=== PATIENT | female | born 1990 | race Caucasian/White ===

== ENCOUNTER 2020-08-28 17:20 | Emergency (ER) | payer BC ==
[~2020-08-28] VITALS: Ht 162.6 cm; Wt 79.5 kg
[2020-08-28] MEDS ORDERED: IV NORMAL SALINE 1000ML BAG 1,000 ML IV SCH (17:30)
[2020-08-28 18:25] LABS: BASO % 0 % (0-3); EOS # 0.1 x10^3/uL (0.0-0.7); EOS % 1 % (0-3); HEMOGLOBIN 10.3 g/dL (12.0-15.5); LYMPH % 11 % (24-48); MEAN CORPUSCULAR HEMOGLOBIN 28 pg (25-35); MEAN CORPUSCULAR HGB CONC 33 g/dL (31-37); MEAN CORPUSCULAR VOLUME 85 fL (79-100); MONO # 0.9 x10^3/uL (0.0-1.1); MONO % 11 % (0-9); NEUT # 6.6 x10^3/uL (1.8-7.7); NEUT % 77 % (31-73); PLATELET COUNT 218 x10^3/uL (140-400); RED BLOOD COUNT 3.65 x10^6/uL (3.50-5.40); RED CELL DISTRIBUTION WIDTH 12.7 % (11.5-14.5); WHITE BLOOD COUNT 8.6 x10^3/uL (4.0-11.0)
[2020-08-28 18:28] LABS: BILIRUBIN,URINE NEGATIVE (NEG); CLARITY,URINE CLEAR; COLOR,URINE YELLOW; NITRITE,URINE NEGATIVE (NEG); PH,URINE 5.5 (<5.0-8.0); PROTEIN,URINE NEGATIVE (NEG-TRACE); UROBILINOGEN,URINE 0.2 mg/dL (0.2 mg/dL)
[2020-08-28 18:35] LABS: BARBITURATES NEG (NEG); BENZODIAZEPINES NEG (NEG); CANNABINOIDS NEG (NEG); COCAINE NEG (NEG); METHADONE NEG (NEG); OPIATES NEG (NEG); PHENCYCLIDINE NEG (NEG)
[2020-08-28 18:39] LABS: AMPHETAMINE/METHAMPHETAMINE NEG (NEG)
[2020-08-28 18:41] LABS: CALCIUM 8.1 mg/dL (8.5-10.1); CREATININE 0.6 mg/dL (0.6-1.0); GFR 119.9; POTASSIUM 3.5 mmol/L (3.5-5.1)
[2020-08-28 18:43] LABS: BACTERIA,URINE MANY /HPF (0-FEW); RBC,URINE 0 /HPF (0-2)
[2020-08-28 18:47] LABS: ALBUMIN 2.4 g/dL (3.4-5.0); ALBUMIN/GLOBULIN RATIO 0.8 (1.0-1.7); TOTAL BILIRUBIN 0.2 mg/dL (0.2-1.0); TOTAL PROTEIN 5.5 g/dL (6.4-8.2)
--- NOTE | 2020-08-28 19:14 | PHYS DOC ---
Past Medical History Past Medical History: Anxiety Past Surgical History: Smoking Status: Current Every Day Smoker Alcohol Use: Occasionally Additional Information: 'I TAKE SIPS OF ALCOHOL OCCASIONALLY' General Adult EDM: Chief Complaint: SYNCOPE HPI: HPI: Patient is a 29 year old female who presents with states today she was standing in the house when she suddenly got short of air and dizzy and felt she is going to pass out and nauseated. She went to the bathroom and leaned over the sink in the next and she knows she is being woken up on the floor. She states that she knows she has not drink as much water she usually does. Patient is 30 weeks . She sees a Dr. Moreno. She states only thing that she ate today was pop tarts. Patient currently denies pain, nausea, vomiting, diarrhea, abdominal pain, back pain, neck pain, head pain, dizziness, vision changes, fo tita weakness, numbness or tingling, joint pain, vaginal bleeding, vaginal discharge. Review of Systems: Review of Systems: Constitutional: Denies fever or chills. [] Eyes: Denies change in visual acuity. [] HENT: Denies nasal congestion or sore throat. [] Respiratory: Denies cough. + shortness of breath. [] Cardiovascular: Denies chest pain or edema. [] GI: Denies abdominal pain, nausea, vomiting, bloody stools or diarrhea. [] : Denies dysuria. [] Musculoskeletal: Denies back pain or joint pain. [] Integument: Denies rash. [] Neurologic: + Dizziness, + syncope, denies headache, focal weakness or sensory changes. [] Endocrine: Denies polyuria or polydipsia. [] Lymphatic: Denies swollen glands. [] Psychiatric: Denies depression or anxiety. [] Heart Score: Risk Factors: Risk Factors: DM, Current or recent (<one month) smoker, HTN, HLP, family history of CAD, obesity. Risk Scores: Score 0 - 3: 2.5% MACE over next 6 weeks - Discharge Home Score 4 - 6: 20.3% MACE over next 6 weeks - Admit for Clinical Observation Score 7 - 10: 72.7% MACE over next 6 weeks - Early Invasive Strategies Current Medications: Current Medications Medications (Trade) Dose Ordered Sig/Carissa Start Time Stop Time Status Last Admin Dose Admin Sodium Chloride 1,000 ml @ 1,000 mls/hr Q1H 08/28/20 17:30 08/28/20 18:29 DC 08/28/20 17:49 1,000 MLS/HR Allergies: Allergies: Allergies Coded Allergies Type Severity Reaction Last Updated Verified No Known Drug Allergies 08/28/20 No Physical Exam: PE: Constitutional: Well developed, well nourished, no acute distress, non-toxic appearance. [] HENT: Normocephalic, atraumatic, bilateral external ears normal, oropharynx moist, no oral exudates, nose normal. [] Eyes: PERRLA, EOMI, conjunctiva normal, no discharge. [] Neck: Normal range of motion, no tenderness, supple, no stridor. [] Cardiovascular:Heart rate regular rhythm, no murmur [] Lungs & Thorax: Bilateral breath sounds clear to auscultation [] Abdomen: Bowel sounds normal, soft, no tenderness, no masses, no pulsatile masses. [] Skin: Warm, dry, no erythema, no rash. [] Back: No tenderness, no CVA tenderness. [] Extremities: No tenderness, no cyanosis, no clubbing, ROM intact, no edema. [] Neurologic: Alert and oriented X 3, normal motor function, normal sensory function, no focal deficits noted. [] Psychologic: Affect normal, judgement normal, mood normal. Normal physical exam [] Current Patient Data: Labs: Laboratory Tests Test 08/28/20 17:57 08/28/20 18:15 White Blood Count 8.6 x10^3/uL (4.0-11.0) Red Blood Count 3.65 x10^6/uL (3.50-5.40) Hemoglobin 10.3 g/dL (12.0-15.5) L Hematocrit 31.0 % (36.0-47.0) L Mean Corpuscular Volume 85 fL (79-100) Mean Corpuscular Hemoglobin 28 pg (25-35) Mean Corpuscular Hemoglobin Concent 33 g/dL (31-37) Red Cell Distribution Width 12.7 % (11.5-14.5) Platelet Count 218 x10^3/uL (140-400) Neutrophils (%) (Auto) 77 % (31-73) H Lymphocytes (%) (Auto) 11 % (24-48) L Monocytes (%) (Auto) 11 % (0-9) H Eosinophils (%) (Auto) 1 % (0-3) Basophils (%) (Auto) 0 % (0-3) Neutrophils # (Auto) 6.6 x10^3/uL (1.8-7.7) Lymphocytes # (Auto) 1.0 x10^3/uL (1.0-4.8) Monocytes # (Auto) 0.9 x10^3/uL (0.0-1.1) Eosinophils # (Auto) 0.1 x10^3/uL (0.0-0.7) Basophils # (Auto) 0.0 x10^3/uL (0.0-0.2) Sodium Level 137 mmol/L (136-145) Potassium Level 3.5 mmol/L (3.5-5.1) Chloride Level 105 mmol/L (98-107) Carbon Dioxide Level 22 mmol/L (21-32) Anion Gap 10 (6-14) Blood Urea Nitrogen 7 mg/dL (7-20) Creatinine 0.6 mg/dL (0.6-1.0) Estimated GFR (Cockcroft-Gault) 119.9 BUN/Creatinine Ratio 12 (6-20) Glucose Level 69 mg/dL (70-99) L Calcium Level 8.1 mg/dL (8.5-10.1) L Total Bilirubin 0.2 mg/dL (0.2-1.0) Aspartate Amino Transferase (AST) 17 U/L (15-37) Alanine Aminotransferase (ALT) 17 U/L (14-59) Alkaline Phosphatase 72 U/L (46-116) Troponin I Quantitative < 0.017 ng/mL (0.000-0.055) Total Protein 5.5 g/dL (6.4-8.2) L Albumin 2.4 g/dL (3.4-5.0) L Albumin/Globulin Ratio 0.8 (1.0-1.7) L Urine Collection Type Unknown Urine Color Yellow Urine Clarity Clear Urine pH 5.5 (<5.0-8.0) Urine Specific [place] 1.010 (1.000-1.030) Urine Protein Negative mg/dL (NEG-TRACE) Urine Glucose (UA) Negative mg/dL (NEG) Urine Ketones (Stick) Negative mg/dL (NEG) Urine Blood Negative (NEG) Urine Nitrite Negative (NEG) Urine Bilirubin Negative (NEG) Urine Urobilinogen Dipstick 0.2 mg/dL (0.2 mg/dL) Urine Leukocyte Esterase Negative (NEG) Urine RBC 0 /HPF (0-2) Urine WBC 11-20 /HPF (0-4) Urine Squamous Epithelial Cells Mod /LPF Urine Bacteria Many /HPF (0-FEW) Urine Mucus Marked /LPF Urine Opiates Screen Neg (NEG) Urine Methadone Screen Neg (NEG) Urine Barbiturates Neg (NEG) Urine Phencyclidine Screen Neg (NEG) Urine Amphetamine/Methamphetamine Neg (NEG) Urine Benzodiazepines Screen Neg (NEG) Urine Cocaine Screen Neg (NEG) Urine Cannabinoids Screen Neg (NEG) Urine Ethyl Alcohol Neg (NEG) Laboratory Tests 08/28/20 17:57 Laboratory Tests 08/28/20 17:57 Vital Signs: Vital Signs Date Time Temp Pulse Resp B/P (MAP) Pulse Ox O2 Delivery O2 Flow Rate FiO2 08/28/20 17:20 98.6 85 16 103/54 (70) 98 Room Air 98.6 EKG: EK and read by Dr. Lynn as sinus rhythm and no STEMI. Radiology/Procedures: Radiology/Procedures: [] Impression: [facility] [address] [place], [place] [id number] IMAGING REPORT Signed PATIENT: PANHCO LIRIANO ACCOUNT: [id number] : 1990 LOCATION: ER AGE: 29 SEX: F EXAM STATUS: REG ER ORD. PHYSICIAN: JHONNY ATWOOD APRN REASON: SOA, SYNCOPE, 30 WK 5 DAYS PREG, OMNI 350, 100 ML IV PROCEDURE: CT ANGIOGRAPHY CHEST CT angiogram of the chest with contrast: Reason for examination: Short of breath. Syncope. 30 weeks and 5 days . Helical images were obtained through the chest with intravenous administration of 100 cc Omnipaque 350 using PE protocol. 3-D MIPS reconstruction was performed in sagittal and coronal planes. The patient was placed and is 360 degree wrap shield as high as possible without intravenous without obscuring area of interest. Exposure: One or more of the following individualized dose reduction techniques were utilized for this examination: 1. Automated exposure control 2. Adjustment of the mA and/or kV according to patient size 3. Use of iterative reconstruction technique. No abnormality seen at the thyroid gland. The trachea and mainstem bronchi show no intraluminal lesions. No abnormality seen at the esophagus. The thoracic aorta shows no aneurysmal dilatation or dissection. The heart size is normal with no pericardial effusion. There is no evidence of pulmonary embolus. Lung grove show no infiltrates or pleural effusions and no pneumothorax. No acute bony abnormality seen. No abnormality seen in the visualized portion of the liver, spleen or adrenal glands. The most superior portion of the gravid uterus and fetus are evident. IMPRESSION: No evidence of pulmonary embolus. No acute cardiopulmonary disease is evident. Electronically signed by: Catalina Go MD (08/28/2020 8:17 PM) [facility] DICTATED and SIGNED BY: CATALINA GO MD DATE: 08/28/[id number] 0 Course & Med Decision Making: Course & Med Decision Making Pertinent Labs and Imaging studies reviewed. (See chart for details) See HPI. Due to the patient's symptoms she is at high risk for a PE which could cause . Patient is also a smoker. I have spoken to Dr. Lynn concerning this and she states that the patient needs to be scanned with a CT angio of the chest. Abdomen non tender. Patient is getting a liter of fluids. Dr. Lynn stated that between 3 and 8 weeks is when the baby is highest for cancer due to radiation. She states that the mother is only at risk for breast cancer. I spoken to the patient concerning the risks and the risk of radiation and the patient states that she agrees the risk of dying from a PE outweighs the radiation. heart tones are 140s to 150s. Vital signs are within normal limits. Urinalysis shows no infection. Blood work is unremarkable. EKG shows a normal sinus rhythm. She has no peripheral edema. Patient if offered food and refused in the ED for me after I saw the patient but nurse states she later brought the patient a tray of food. Glucose 67. CTA chest shows no acute findings. Blood work unremarkable. Saadia IBANEZ has spoken to the L&D charge nurse and states since the patient is not having any abdominal pain or bleeding she does not need to be monitored in Labor and delivery. [] Jennifer Disclaimer: Jennifer Disclaimer: This electronic medical record was generated, in whole or in part, using a voice recognition dictation system. Departure Departure Impression: Primary Impression: Syncope Qualified Codes: R55 - Syncope and collapse Disposition: 01 DC HOME SELF CARE/HOMELESS Condition: STABLE Referrals: JESU DAILY MD (PCP) Patient Instructions: Syncope Additional Instructions: Eat frequent meals to keep your blood sugars up. Drink plenty of fluids. Follow-up with your OB doctor soon as possible. Return for abdominal pain, chest pain, shortness of air, vaginal bleeding or leaking, back pain JHONNY ATWOOD FILM DEVELOPING MACHINE OPERATOR Aug 28, 2020 19:14
[2020-08-28] MEDS ORDERED: IOHEXOL 350 MG/ML 100 ML VIAL. IV ONE (19:30)
[2020-08-28] MEDS ORDERED: CONTRAST GIVEN. MC PRN (19:45)
--- NOTE | 2020-08-28 20:28 | RAD ---
CT angiogram of the chest with contrast: Reason for examination: Short of breath. Syncope. 30 weeks and 5 days . Helical images were obtained through the chest with intravenous administration of 100 cc Omnipaque 35 0 using PE protocol. 3-D MIPS reconstruction was performed in sagittal and coronal planes. The patien t was placed and is 360 degree wrap shield as high as possible without intravenous without obscuring area of interest. Exposure: One or more of the following individualized dose reduction techniques were utilized for thi s examination: 1. Automated exposure control 2. Adjustment of the mA and/or kV according to patient size 3. Use of iterative reconstruction technique. No abnormality seen at the thyroid gland. The trachea and mainstem bronchi show no intraluminal lesio ns. No abnormality seen at the esophagus. The thoracic aorta shows no aneurysmal dilatation or dissec tion. The heart size is normal with no pericardial effusion. There is no evidence of pulmonary embolu s. Lung grove show no infiltrates or pleural effusions and no pneumothorax. No acute bony abnormalit y seen. No abnormality seen in the visualized portion of the liver, spleen or adrenal glands. The most superi or portion of the gravid uterus and fetus are evident. IMPRESSION: No evidence of pulmonary embolus. No acute cardiopulmonary disease is evident. Electronically signed by: Dona Grove MD (08/28/2020 8:17 PM) [place]
[2020-08-28 21:00] VITALS: BP 98/51
--- NOTE | 2020-08-31 12:33 | EKG ---
[facility] [address] [place] [address] Test Date: 2020-08-28 Test Time: 17:41:27 Pat Name: PANCHO LIRIANO Department: Room: Gender: F Customer Care Coordinator: : 1990 Requested By: JHONNY ATWOOD Order Number: [id number] Reading MD: Ramiro Diaz Measurements Intervals [place] Rate: 74 P: 31 WA: 130 QRS: 26 QRSD: 76 T: 7 QT: 386 QTc: 434 Interpretive Statements SINUS RHYTHM NORMAL ECG RI6.02 No previous ECG available for comparison Electronically Signed On 09-07-2020 14:42:08 WOUND CARE RN by Ramiro Diaz
== END 2020-08-28 21:10 | disposition home or self-care (01) ==
LOC: ER 17:20
DX: O26.893 Other specified pregnancy related conditions, third trimester (principal); R55 Syncope and collapse; R42 Dizziness and giddiness; R11.0 Nausea; F41.9 Anxiety disorder, unspecified; F17.200 Nicotine dependence, unspecified, uncomplicated; Z98.890 Other specified postprocedural states; Z3A.30 30 weeks gestation of pregnancy
CPT/HCPCS: 36415; 71275; 80053; 80307; 81001; 84484; 85025; 87086; 96360; 99285; J7030; Q9967; 93005